=== PATIENT | male | born 1985 | race Caucasian/White ===

== ENCOUNTER 2018-03-19 15:27 | Emergency (ER) | payer OTHER ==
[~2018-03-19] VITALS: Ht 172.7 cm; Wt 72.6 kg
[2018-03-19] MEDS ORDERED: FLONASE ALLERG9.9 ML NAS (16:27)
[2018-03-19] MEDS ORDERED: ZYRTEC10 MG PO (16:27)
== END 2018-03-19 16:55 | disposition home or self-care (01) ==
LOC: ED 15:27
DX: B34.9 Viral infection, unspecified (principal)

== ENCOUNTER → 2018-07-01 | Outpatient (CLI) | payer OTHER ==
[~2018-07-01] MED LIST: AUGMENTIN 875875 MG PO; ERYTHROMYCIN OPH1 GM OPH; FLONASE ALLERG9.9 ML NAS; ZYRTEC10 MG PO
[2018-07-03 07:05] LABS: TOTAL PROTEIN, SERUM 7.3 g/dL (6.0-8.5)
[2018-07-03 15:07] LABS: A/G RATIO 1.5 (0.7-1.7); ALBUMIN 4.4 g/dL (2.9-4.4); ALPHA-1-GLOBULIN 0.2 g/dL (0.0-0.4); ALPHA-2-GLOBULIN 0.7 g/dL (0.4-1.0); BETA GLOBULIN 0.9 g/dL (0.7-1.3); GAMMA GLOBULIN 1.1 g/dL (0.4-1.8); GLOBULIN, TOTAL 2.9 g/dL (2.2-3.9); M-SPIKE Not Observed g/dL (Not Observed)
[2018-07-04 15:05] LABS: ALBUMIN, URINE 38.5 % (.); ALPHA-1-GLOBULIN, URINE 3.2 % (.); ALPHA-2-GLOBULIN, URINE 9.4 % (.); BETA GLOBULIN, URINE 29.2 % (.); GAMMA GLOBULIN, URINE 19.7 % (.); M-SPIKE, % 7.6 % (Not Observed); PROTEIN,TOTAL - URINE RANDOM 7.6 mg/dL (Not Estab.)
== END | disposition home or self-care (01) ==
LOC: LAB 20:47
PROVIDERS: Family Medicine
DX: E88.09 Other disorders of plasma-protein metabolism, not elsewhere classified (principal)

== ENCOUNTER 2018-08-23 23:20 | Emergency (ER) | payer OTHER, MEDICARE ==
[~2018-08-23] VITALS: Wt 74.8 kg
[~2018-08-23 23:20] MED LIST changes: -AUGMENTIN 875875 MG PO
[2018-08-23] MEDS ORDERED: AUGMENTIN 875875 MG PO (23:28)
[2018-08-24 00:30] LABS: BASO # 0.1 10*3/uL (0.0-0.1); BASO % 0.7 % (0.0-1.0); EOS # 0.2 10*3/uL (0.0-0.4); EOS % 1.4 % (1.0-4.0); HEMATOCRIT 44.9 % (42.0-52.0); HEMOGLOBIN 14.9 g/dl (14.0-18.0); LYMPH # 2.7 10*3/uL (1.3-4.4); LYMPH % 23.7 % (27.0-41.0); MEAN CELL VOLUME 90.7 fl (80.0-94.0); MEAN CORPUSCULAR HGB 30.1 pg (27.0-31.0); MEAN CORPUSCULAR HGB CONC 33.2 g/dl (33.0-37.0); MEAN PLATELET VOLUME 10.5 fl (9.6-12.3); MONO % 8.5 % (3.0-9.0); NEUT # 7.4 10*3/uL (2.3-7.9); NEUT % 65.5 % (47.0-73.0); PLATELET COUNT AUTOMATED 230 10*3/uL (130-400); RED BLOOD COUNT 4.95 10*6/uL (4.50-5.90); RED CELL DISTRI WIDTH 12.7 % (0-14.5); WHITE BLOOD COUNT 11.3 10*3/uL (4.8-10.8)
[2018-08-24 00:56] LABS: ALBUMIN 4.3 gm/dl (3.1-4.5); ALKALINE PHOSPHATASE 57 U/L (45-117); BUN 12 mg/dl (7-24); CHLORIDE 106 mmol/L (98-107); CREATININE 1.09 mg/dL (0.70-1.30); POTASSIUM 3.6 mmol/L (3.5-5.1); SGOT/AST 14 IU/L (3-35); SGPT/ALT 14 U/L (12-78); SODIUM 138 mmol/L (136-145); TOTAL PROTEIN 7.9 gm/dL (6.4-8.2)
== END 2018-08-24 02:50 | disposition home or self-care (01) ==
LOC: ED 23:20
PROVIDERS: Nurse Practitioner Family
DX: L03.213 Periorbital cellulitis (principal)